=== PATIENT | female | born 2005 | race Caucasian/White ===

== ENCOUNTER 2025-10-12 16:44 | Emergency (ER) | payer BC, SELFPAY ==
[2025-10-12 16:45] VITALS: BP 115/88; PULSE 106; RESP 17; TEMP 36.8; O2SAT 100
[2025-10-12 16:46] VITALS: BP 129/82; PULSE 123; RESP 16; TEMP 36.5; O2SAT 99; BMI 17.9
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
[2025-10-12] MEDS: HYDROcodone Bitartrate/Apap 5/325 Tablet PO (18:48)
[2025-10-12 19:22] VITALS: BP 125/101; PULSE 117; RESP 20; TEMP 36.6; O2SAT 99
== END 2025-10-12 19:35 | disposition home or self-care (01) ==
PROVIDERS: Emergency Provider Surgery; Visit Provider Surgery
DX: M25.511 Pain in right shoulder (principal); M25.521 Pain in right elbow; V89.2XXA Person injured in unspecified motor-vehicle accident, traffic, initial encounter
CPT/HCPCS: 99282